=== PATIENT | female | born 1980 | race Caucasian/White ===

== ENCOUNTER 2024-02-13 10:04 | Emergency (ER) | payer BC ==
[~2024-02-13] VITALS: Ht 172.7 cm; Wt 61.4 kg
[2024-02-13 10:05] VITALS: BP 120/73; TEMP 98; O2SAT 100
[2024-02-13] MEDS ORDERED: IBUP200T46 PO (10:35)
[2024-02-13] MEDS ORDERED: KETOROLAC 30 MG/ML 1ML VIAL IM ONE (13:25)
[2024-02-13] MEDS: LIDOCAINE 5% (LIDODERM) PATCH TD ONE (13:29)
[2024-02-13] MEDS: ACETAMINOPHEN 500 MG TAB PO ONE (13:29)
== END 2024-02-13 13:32 | disposition home or self-care (01) ==
LOC: M ED 10:04
DX: M79.602 Pain in left arm (principal); F10.10 Alcohol abuse, uncomplicated; Z79.1 Long term (current) use of non-steroidal anti-inflammatories (NSAID)